=== PATIENT | male | born 2000 | race Two or more races ===

== ENCOUNTER 2018-02-28 10:49 | Emergency (ER) | payer MEDICAID ==
[~2018-02-28] VITALS: Ht 160 cm; Wt 59.0 kg
[2018-02-28 11:04] VITALS: BP 132/94
== END 2018-02-28 13:15 | disposition home or self-care (01) ==
LOC: ER 10:49
DX: S89.92XA Unspecified injury of left lower leg, initial encounter (principal); S49.82XA Other specified injuries of left shoulder and upper arm, initial encounter; V03.90XA Pedestrian on foot injured in collision with car, pick-up truck or van, unspecified whether traffic or nontraffic accident, initial encounter; Y93.89 Activity, other specified; Y99.8 Other external cause status; Y92.89 Other specified places as the place of occurrence of the external cause
CPT/HCPCS: 73030; 73590

== ENCOUNTER 2018-03-13 12:42 | Emergency (ER) | payer MEDICAID ==
[~2018-03-13] VITALS: Ht 160 cm; Wt 54.4 kg
[2018-03-13 14:08] VITALS: BP 104/56
== END 2018-03-13 14:17 | disposition home or self-care (01) ==
LOC: ER 12:53
DX: S46.912D Strain of unspecified muscle, fascia and tendon at shoulder and upper arm level, left arm, subsequent encounter (principal); V49.9XXD Car occupant (driver) (passenger) injured in unspecified traffic accident, subsequent encounter